=== PATIENT | male | born 1990 | race Caucasian/White ===

== ENCOUNTER 2022-12-25 10:27 | Emergency (ER) | payer SELFPAY ==
[2022-12-25] MEDS ORDERED: Sodium Chloride 0.9% 10 ML Syringe FLUSH PRN (10:38)
[2022-12-25] MEDS ORDERED: Aspirin 81 MG Tab.Chew PO ONE (10:38)
[2022-12-25] MEDS ORDERED: Sodium Chloride 0.9% 2.5 ML Syringe FLUSH PRN (10:38)
[2022-12-25] MEDS ORDERED: Sodium Chloride 0.9% 1,000 ML IV ONE (10:38)
[2022-12-25 11:23] LABS: CARBON DIOXIDE,CO2 29.1 mmol/L (21.0-32.0); POTASSIUM,K 3.7 mmol/L (3.5-5.1)
== END 2022-12-25 12:25 | disposition home or self-care (01) ==
LOC: MW.ED 10:27
DX: R07.9 Chest pain, unspecified (principal)
CPT/HCPCS: 36415; 71045; 80053; 80305; 81001; 84484; 85025; 93005; 96360; 99285; J3490; J7030; 93010; 99283